=== PATIENT | female | born 1945 | race Caucasian/White ===

== ENCOUNTER 2020-05-08 08:45 | Outpatient (CLI) | payer MEDICARE, SELFPAY ==
--- NOTE | ~2020-05-08 | US_ITS ---
EXAMINATION: US retroperitoneal comp EXAM DATE: 05/08/2020 09:24 INDICATION: Hematuria. TECHNIQUE: Multiple grayscale and Doppler images of the kidneys were obtained (by a technologist who performed the scan) and subsequently reviewed. There is no prior study for comparison. FINDINGS: Right kidney: There is normal contour and echogenicity. It measures 10.0 x 4.2 x 5.4 centimeters. T here are no focal renal lesions identified. There is no hydronephrosis. Left kidney: There is normal contour and echogenicity. It measures 10.3 x 5.0 x 6.2 centimeters. Th ere are no focal renal lesions identified. There is no hydronephrosis. Bladder unremarkable. IMPRESSION: 1. Sonographically unremarkable kidneys. Reviewed, dictated and finalized at location A.
== END 2020-05-08 08:46 | disposition home or self-care (01) ==
LOC: CHSIMG 08:47
PROVIDERS: PCP Internal Medicine; Visit Provider Internal Medicine
DX: R31.9 Hematuria, unspecified (principal)
CPT/HCPCS: 76770; 88112

== ENCOUNTER 2020-09-04 07:29 | Outpatient (CLI) | payer MEDICARE, SELFPAY ==
--- NOTE | ~2020-09-04 | MM_ITS ---
EXAMINATION: MM screening vasiliy BI w yanet HISTORY: Screening TECHNIQUE: Craniocaudal and mediolateral oblique 3-D tomosynthesis images were obtained and synthetic 2-D images were generated. CAD analysis was submitted and interpreted. COMPARISON: Comparison to multiple prior studies sequentially, with oldest reviewed study dated 02/2011. BREAST PARENCHYMAL COMPOSITION: The breasts are extremely dense, which lowers the sensitivity of mamm ography. FINDINGS: There is no evidence of suspicious mass, calcification, or architectural distortion to sugg est malignancy in either breast. There has been no suspicious interval change. IMPRESSION: 1. No mammographic evidence of malignancy. 2. Recommend routine screening mammography in one year. BI-RADS Category 1: Negative Reviewed, dictated and finalized at location A. 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
--- NOTE | ~2020-09-04 | US_ITS ---
EXAMINATION: US right upper quadrant DATE: 09/04/2020 08:24 INDICATION: Elevated liver enzymes TECHNIQUE: Multiple grayscale and Doppler ultrasound images of the abdomen were obtained. COMPARISON: 09/03/2019 FINDINGS: The pancreatic head and body are normal in appearance. The pancreatic tail is not visualized. Liver has normal echogenicity and contour, with a smooth surface. No liver lesion identified. No intrahepat ic biliary duct dilation suspected. Portal venous flow was seen in the hepatopetal, normal direction and has normal Doppler waveform. The gallbladder is normal in appearance. There is no cholelithiasis . The common bile duct measures 5 mm, which is normal. Sonographic Rodas sign was reported as negati ve by the administration physician.Visualized portion of the right kidney demonstrates normal echogenicity and con tour with no hydronephrosis. IMPRESSION: 1. Normal right upper quadrant ultrasound. Reviewed, dictated and finalized at location B. 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
[2020-09-04 08:21] LABS: Alanine Aminotransferase 29 U/L (14-59); Alkaline Phosphatase 52 U/L (46-116); Anion Gap 8 mmol/L (8-16); Aspartate Amino Transferase 27 U/L (15-37); Bilirubin,Total 0.6 mg/dL (0.00-1.00); Blood Urea Nitrogen 10 mg/dL (7-18); Calcium 9.5 mg/dL (8.5-10.1); Carbon Dioxide 33 mmol/L (21-32); Chloride 102 mmol/L (98-108); Estimated Glomerular Filt Rate 55; Glucose 88 mg/dL (70-99); Osmolality Calculated 294 mOsm/kg (285-295); Sodium 143 mmol/L (136-145); Total Protein 7.4 g/dL (6.4-8.2)
== END 2020-09-04 07:30 | disposition home or self-care (01) ==
LOC: CHSLAB 07:30
PROVIDERS: PCP Internal Medicine; Visit Provider Internal Medicine
DX: Z12.31 Encounter for screening mammogram for malignant neoplasm of breast (principal); R94.5 Abnormal results of liver function studies
CPT/HCPCS: 36415; 76705; 77063; 77067; 80053

== ENCOUNTER 2020-12-11 07:13 | Outpatient (CLI) | payer MEDICARE, SELFPAY ==
[2020-12-11 07:29] LABS: Appearance Urine Sl Cloudy (Clear); Basophils Absolute Auto 0.07 K/mm3 (0.00-0.10); Basophils Percent Auto 1.1 % (0.0-1.0); Bilirubin Urine Negative (Negative); Color Urine Yellow (Yellow); Eosinophils Absolute Auto 0.58 K/mm3 (0.02-0.50); Eosinophils Percent Auto 9.3 % (1.0-6.0); Glucose Urine UA Negative (Negative); Hematocrit 42.9 % (35.0-42.0); Immature Granulocyte Absolute 0.01 K/mm3 (0.00-0.00); Immature Granulocyte Percent A 0.2 % (0.0-0.0); Ketones Urine Trace (Negative); Leukocyte Esterase Ur Trace LEU/UL (Negative); Lymphocytes Absolute Auto 2.43 K/mm3 (1.10-4.50); Lymphocytes Percent Auto 38.8 % (18.0-42.0); Mean Corpuscular HGB Conc 32.6 g/dL (32.0-36.0); Mean Corpuscular Hemoglobin 31.9 pg (27.0-31.0); Mean Corpuscular Volume 97.7 fL (78.0-102.0); Mean Platelet Volume 10.2 fl (9.2-11.8); Monocytes Absolute Auto 0.52 K/mm3 (0.10-0.90); Monocytes Percent Auto 8.3 % (2.0-11.0); Neutrophils Absolute Auto 2.7 K/mm3 (1.7-7.2); Neutrophils Percent Auto 42.3 % (50.0-70.0); Nitrate Urine Negative (Negative); Platelet Count Result 228 K/mm3 (150-420); Protein Urine Trace (Negative); Red Blood Count 4.39 M/mm3 (4.20-5.40); Urobilinogen Urine 0.2 mg/dL (0.2-1.0); White Blood Count 6.3 K/mm3 (4.8-10.8); pH Urine 7.5 (5.0-8.0)
[2020-12-11 07:37] LABS: Add Urine Microscopic? YES; Blood Urine Trace-Intact (Negative)
[2020-12-11 07:38] LABS: Amorphous Sediment Urine Moderate; Bacteria Urine 1+ /hpf; RBC Urine 0-2 /hpf (0-2); Squamous Epithelial Cell Urine Few /hpf (Few); WBC Urine 0-3 /hpf (0-3)
[2020-12-11 08:20] LABS: Alanine Aminotransferase 39 U/L (14-59); Albumin Level 3.7 g/dL (3.4-5.0); Alkaline Phosphatase 64 U/L (46-116); Anion Gap 8 mmol/L (8-16); Aspartate Amino Transferase 31 U/L (15-37); Bilirubin,Total 0.6 mg/dL (0.00-1.00); Blood Urea Nitrogen 12 mg/dL (7-18); Calcium 8.9 mg/dL (8.5-10.1); Carbon Dioxide 31 mmol/L (21-32); Chloride 104 mmol/L (98-108); Cholesterol 260 mg/dL (0-200); Estimated Glomerular Filt Rate 59; Glucose 98 mg/dL (70-99); HDL Direct 116 mg/dL (40-60); LDL Cholesterol Calculated 132 mg/dL (<130); Osmolality Calculated 295 mOsm/kg (285-295); Potassium 4.2 mmol/L (3.5-5.1); Sodium 143 mmol/L (136-145); Total Protein 7.4 g/dL (6.4-8.2); Triglycerides 58 mg/dL (0-150); Vitamin B12 992 pg/mL (193-986)
[2020-12-15 03:03] LABS: Vitamin D 25 Hydroxy 58 ng/mL (30-100)
== END 2020-12-11 07:14 | disposition home or self-care (01) ==
LOC: CHSLAB 07:15
PROVIDERS: PCP Internal Medicine; Visit Provider Internal Medicine
DX: I10 Essential (primary) hypertension (principal); D51.9 Vitamin B12 deficiency anemia, unspecified; M81.0 Age-related osteoporosis without current pathological fracture
CPT/HCPCS: 36415; 80053; 80061; 81001; 82306; 82607; 85025

== ENCOUNTER 2021-06-12 06:58 | Outpatient (CLI) | payer MEDICARE, SELFPAY ==
[2021-06-12 07:16] LABS: Add Urine Microscopic? YES; Appearance Urine Clear (Clear); Bilirubin Urine Negative (Negative); Blood Urine 1+ (Negative); Color Urine Light Yellow (Yellow); Glucose Urine UA Negative (Negative); Ketones Urine Negative (Negative); Leukocyte Esterase Ur Negative (Negative); Nitrate Urine Negative (Negative); Protein Urine Negative (Negative); Urobilinogen Urine 0.2 mg/dL (0.2-1.0); pH Urine 7.5 (5.0-8.0)
[2021-06-12 07:37] LABS: Bacteria Urine Trace /hpf; Squamous Epithelial Cell Urine Rare /hpf (Few); WBC Urine None seen /hpf (0-3)
[2021-06-12 08:00] LABS: Hematocrit 45.1 % (35.0-42.0); Hemoglobin 15.2 g/dL (11.7-13.8); Mean Corpuscular HGB Conc 33.7 g/dL (32.0-36.0); Mean Corpuscular Hemoglobin 32.6 pg (27.0-31.0); Mean Corpuscular Volume 96.8 fL (78.0-102.0); Mean Platelet Volume 10.8 fl (9.2-11.8); Platelet Count Result 264 K/mm3 (150-420); Red Blood Count 4.66 M/mm3 (4.20-5.40); White Blood Count 7.7 K/mm3 (4.8-10.8)
[2021-06-12 08:02] LABS: Band Neutrophils Percent 0 % (0-6); Eosinophils Absolute Manual 0.69 K/mm3 (0.02-0.5); Eosinophils Percent Manual 9 % (1-6); Lymphocytes Percent Manual 39 % (18-44); Monocytes Absolute Manual 0.69 K/mm3 (0.1-0.90); Monocytes Percent Manual 9 % (3-9); Neutrophils Absolute Manual 3.31 K/mm3 (1.7-7.2); Neutrophils Percent Manual 43 % (46-73); Platelet Estimate Adequate (Adequate); Total Cells Counted 100
[2021-06-12 08:03] LABS: Alanine Aminotransferase 49 U/L (14-59); Albumin Level 3.6 g/dL (3.4-5.0); Alkaline Phosphatase 61 U/L (46-116); Anion Gap 8 mmol/L (8-16); Aspartate Amino Transferase 42 U/L (15-37); Bilirubin,Total 0.5 mg/dL (0.00-1.00); Blood Urea Nitrogen 9 mg/dL (7-18); Calcium 9.3 mg/dL (8.5-10.1); Carbon Dioxide 32 mmol/L (21-32); Chloride 104 mmol/L (98-108); Estimated Glomerular Filt Rate > 60; Glucose 88 mg/dL (70-99); Osmolality Calculated 295 mOsm/kg (285-295); Potassium 4.2 mmol/L (3.5-5.1); Sodium 144 mmol/L (136-145); Total Protein 7.4 g/dL (6.4-8.2)
[2021-06-16 19:35] LABS: Vitamin D 25 Hydroxy 69 ng/mL (30-100)
== END 2021-06-12 06:59 | disposition home or self-care (01) ==
LOC: CHSLAB 07:01
PROVIDERS: PCP Internal Medicine; Visit Provider Internal Medicine
DX: E53.8 Deficiency of other specified B group vitamins (principal); I10 Essential (primary) hypertension; R31.21 Asymptomatic microscopic hematuria; M81.0 Age-related osteoporosis without current pathological fracture
CPT/HCPCS: 36415; 80053; 81001; 82306; 85025

== ENCOUNTER 2021-09-17 07:17 | Outpatient (CLI) | payer MEDICARE, SELFPAY ==
--- NOTE | ~2021-09-17 | MM_ITS ---
EXAMINATION: MM screening vasiliy BI w yanet HISTORY: Screening mammogram TECHNIQUE: Craniocaudal and mediolateral oblique 3-D tomosynthesis images were obtained and synthetic 2-D images were generated. CAD analysis was submitted and interpreted. COMPARISON: 09/04/2020, 09/03/2019 BREAST PARENCHYMAL COMPOSITION: The breasts are heterogeneously dense, which may obscure small masses . FINDINGS: Scattered benign-appearing calcifications are present. There is no evidence of suspicious m ass, calcification, or architectural distortion to suggest malignancy in either breast. There has bee n no suspicious interval change. IMPRESSION: 1. No mammographic evidence of malignancy. 2. Recommend routine screening mammography in one year. BI-RADS Category 2: Benign finding(s). Reviewed, dictated and finalized at location A. CARE SPECIALIST
--- NOTE | ~2021-09-17 | DEXA_ITS ---
Bone Density Report Name: MARIA G HELLER Age: 76 Sex: Female Ethnicity: White Date of : 1945 Indication: osteopenia; monitoring treatment; height loss; hysterectomy; Referring Provider: Yann Green Study: Bone densitometry was performed. Exam Date: September 17, 2021 Accession number: [id number] Bone Density: Region BMD T-score Z-score Classification AP Spine(L1-L4) 0.894 -1.4 1.0 Osteopenia Femoral Neck (Left) 0.734 -1.0 1.0 Normal Total Hip (Left) 0.736 -1.7 0.1 Osteopenia Femoral Neck (Right) 0.690 -1.4 0.7 Osteopenia Total Hip (Right) 0.717 -1.8 -0.1 Osteopenia Femoral Neck Mean 0.712 -1.2 0.9 Osteopenia Total Hip Mean 0.726 -1.8 0.0 Osteopenia World Health Organization criteria for BMD impression classify patients as: Normal (T-score at or above -1.0), Osteopenia (T-score between -1.0 and -2.5), or Osteoporosis (T-score at or below -2.5). 10-year Fracture Risk: FRAX not reported because: Treated for osteoporosis Previous Exams: Region Exam Age BMD T-score BMD Change BMD Change Date g/cm2 vs Baseline vs Previous AP Spine (L1-L4) 09/17/2021 76 0.894 -1.4 0.072 (8.8%)# -0.028 (-3.0%) 09/03/2019 74 0.922 -1.1 0.100 (12.2%)* 0.067 (7.9%)* 07/23/2015 69 0.854 -1.8 0.033 (4.0%)* -0.028 (-3.2%) 10/20/2012 67 0.882 -1.5 0.061 (7.4%)* 0.017 (2.0%) 10/12/2010 65 0.866 -1.6 0.044 (5.3%)* 0.044 (5.3%)* 09/16/2008 63 0.822 -2.0 Total Hip(Left) 09/17/2021 76 0.736 -1.7 0.113 (18.2%)# 0.029 (4.1%)# 09/03/2019 74 0.707 -1.9 0.085 (13.6%)* 0.099 (16.3%)* 07/23/2015 69 0.608 -2.7 -0.014 (-2.2%) -0.002 (-0.4%) 10/20/2012 67 0.611 -2.7 -0.012 (-1.9%) -0.039 (-6.0%) 10/12/2010 65 0.650 -2.4 0.028 (4.4%)* 0.028 (4.4%)* 09/16/2008 63 0.622 -2.6 Total Hip(Right) 09/17/2021 76 0.717 -1.8 0.075 (11.7%)# 0.058 (8.8%)# 09/03/2019 74 0.659 -2.3 0.017 (2.7%) 0.022 (3.4%) 10/20/2012 67 0.637 -2.5 -0.004 (-0.6%) -0.025 (-3.7%) 10/12/2010 65 0.662 -2.3 0.021 (3.2%) 0.021 (3.2%) 09/16/2008 63 0.641 -2.5 *Denotes significance at 95% confidence level, LSC for AP Spine = 0.022 g/cm2, LSC for Total Hip = 0.027 g/cm2 # Denotes dissimilar scan types or analysis methods Clinical Information Provided by Patient: Is being treated for osteoporosis Has used the following medications: Fosamax (i.e. alendronate), Vitamin D Has the following medical conditions: Hysterectomy
[2021-09-17 08:10] LABS: Alanine Aminotransferase 61 U/L (14-59); Alkaline Phosphatase 56 U/L (46-116); Anion Gap 13 mmol/L (8-16); Aspartate Amino Transferase 53 U/L (15-37); Bilirubin,Total 0.6 mg/dL (0.00-1.00); Blood Urea Nitrogen 8 mg/dL (7-18); Calcium 9.5 mg/dL (8.5-10.1); Carbon Dioxide 30 mmol/L (21-32); Chloride 101 mmol/L (98-108); Estimated Glomerular Filt Rate 51; Glucose 98 mg/dL (70-99); Osmolality Calculated 296 mOsm/kg (285-295); Sodium 144 mmol/L (136-145); Total Protein 7.9 g/dL (6.4-8.2)
== END 2021-09-17 07:18 | disposition home or self-care (01) ==
LOC: CHSIMG 07:20
PROVIDERS: PCP Internal Medicine; Visit Provider Internal Medicine
DX: Z12.31 Encounter for screening mammogram for malignant neoplasm of breast (principal); M81.0 Age-related osteoporosis without current pathological fracture
CPT/HCPCS: 36415; 77063; 77067; 77080; 80053

== ENCOUNTER 2021-12-25 07:29 | Outpatient (CLI) | payer MEDICARE, SELFPAY ==
[2021-12-25 07:44] LABS: Appearance Urine Clear (Clear); Basophils Percent Auto 1.3 % (0.0-1.0); Bilirubin Urine Negative (Negative); Color Urine Yellow (Yellow); Eosinophils Percent Auto 9.2 % (1.0-6.0); Glucose Urine UA Negative (Negative); Hemoglobin 15.1 g/dL (11.7-13.8); Immature Granulocyte Absolute 0.02 K/mm3 (0.00-0.00); Immature Granulocyte Percent A 0.3 % (0.0-0.0); Ketones Urine Negative (Negative); Leukocyte Esterase Ur Negative (Negative); Lymphocytes Percent Auto 31.7 % (18.0-42.0); Mean Corpuscular HGB Conc 32.8 g/dL (32.0-36.0); Mean Corpuscular Hemoglobin 32.1 pg (27.0-31.0); Mean Corpuscular Volume 97.9 fL (78.0-102.0); Mean Platelet Volume 10.3 fl (9.2-11.8); Monocytes Absolute Auto 0.56 K/mm3 (0.10-0.90); Monocytes Percent Auto 7.4 % (2.0-11.0); Neutrophils Absolute Auto 3.8 K/mm3 (1.7-7.2); Neutrophils Percent Auto 50.1 % (50.0-70.0); Nitrate Urine Negative (Negative); Platelet Count Result 261 K/mm3 (150-420); Protein Urine Trace (Negative); Urobilinogen Urine 0.2 mg/dL (0.2-1.0); White Blood Count 7.6 K/mm3 (4.8-10.8)
[2021-12-25 07:50] LABS: Add Urine Microscopic? YES; Bacteria Urine Trace /hpf; Blood Urine Trace-Intact (Negative); RBC Urine None seen /hpf (0-2); Squamous Epithelial Cell Urine Rare /hpf (Few); WBC Urine None seen /hpf (0-3)
[2021-12-25 07:51] LABS: Mucus Urine Moderate /lpf
[2021-12-25 18:26] LABS: Alanine Aminotransferase 44 U/L (14-59); Albumin Level 3.9 g/dL (3.4-5.0); Alkaline Phosphatase 50 U/L (46-116); Anion Gap 7 mmol/L (8-16); Aspartate Amino Transferase 43 U/L (15-37); Bilirubin,Total 0.4 mg/dL (0.00-1.00); Blood Urea Nitrogen 10 mg/dL (7-18); Calcium 9.3 mg/dL (8.5-10.1); Carbon Dioxide 30 mmol/L (21-32); Chloride 105 mmol/L (98-108); Cholesterol 267 mg/dL (0-200); Creatine Kinase 66 U/L (26-192); Estimated Glomerular Filt Rate > 60; Free T3 3.17 pg/mL (2.18-3.98); Free T4 Free Thyroxine 0.98 ng/dL (0.76-1.46); Glucose 86 mg/dL (70-99); HDL Direct 99 mg/dL (40-60); LDL Cholesterol Calculated 151 mg/dL (<130); Osmolality Calculated 292 mOsm/kg (285-295); Potassium 4.1 mmol/L (3.5-5.1); Sodium 142 mmol/L (136-145); Thyroid Stimulating Hormone 0.88 uIU/mL (0.36-3.74); Total Protein 8.2 g/dL (6.4-8.2); Triglycerides 87 mg/dL (0-150); Vitamin B12 842 pg/mL (193-986)
[2021-12-29 20:08] LABS: Vitamin D 25 Hydroxy 69 ng/mL (30-100)
== END 2021-12-25 07:30 | disposition home or self-care (01) ==
LOC: CHSLAB 07:32
PROVIDERS: PCP Internal Medicine; Visit Provider Internal Medicine
DX: M81.0 Age-related osteoporosis without current pathological fracture (principal); I10 Essential (primary) hypertension; E53.8 Deficiency of other specified B group vitamins; R31.21 Asymptomatic microscopic hematuria; I49.3 Ventricular premature depolarization
CPT/HCPCS: 36415; 80053; 80061; 81001; 82306; 82550; 82607; 84439; 84443; 84481; 85025

== ENCOUNTER 2022-07-12 09:15 | Outpatient (CLI) | payer MEDICARE, SELFPAY ==
[2022-07-12 09:29] LABS: Basophils Absolute Auto 0.07 K/mm3 (0.00-0.10); Basophils Percent Auto 0.9 % (0.0-1.0); Eosinophils Absolute Auto 0.46 K/mm3 (0.02-0.50); Eosinophils Percent Auto 6.1 % (1.0-6.0); Hematocrit 43.1 % (35.0-42.0); Hemoglobin 14.4 g/dL (11.7-13.8); Immature Granulocyte Absolute 0.03 K/mm3 (0.00-0.00); Immature Granulocyte Percent A 0.4 % (0.0-0.0); Lymphocytes Absolute Auto 2.57 K/mm3 (1.10-4.50); Lymphocytes Percent Auto 34.2 % (18.0-42.0); Mean Corpuscular HGB Conc 33.4 g/dL (32.0-36.0); Mean Corpuscular Volume 98.9 fL (78.0-102.0); Mean Platelet Volume 10.1 fl (9.2-11.8); Monocytes Absolute Auto 0.62 K/mm3 (0.10-0.90); Monocytes Percent Auto 8.3 % (2.0-11.0); Neutrophils Absolute Auto 3.8 K/mm3 (1.7-7.2); Neutrophils Percent Auto 50.1 % (50.0-70.0); Platelet Count Result 226 K/mm3 (150-420); Red Blood Count 4.36 M/mm3 (4.20-5.40); Red Cell Distribution Width 13.3 % (11.6-14.4); White Blood Count 7.5 K/mm3 (4.8-10.8)
[2022-07-12 09:30] LABS: Appearance Urine Slightly Cloudy (Clear); Bilirubin Urine 1+ (Negative); Color Urine Yellow (Yellow); Glucose Urine UA Negative (Negative); Ketones Urine Trace (Negative); Leukocyte Esterase Ur Negative (Negative); Nitrate Urine Negative (Negative); Protein Urine Negative (Negative); Specific Grav Ur 1.015 (1.010-1.020); Urobilinogen Urine 0.2 mg/dL (0.2-1.0)
[2022-07-12 09:37] LABS: Add Urine Microscopic? YES; Bacteria Urine Trace /hpf; Blood Urine Trace-Intact (Negative); RBC Urine 0-2 /hpf (0-2); Squamous Epithelial Cell Urine Few /hpf (Few); WBC Urine None seen /hpf (0-3)
[2022-07-12 09:38] LABS: Amorphous Sediment Urine Moderate
[2022-07-12 10:44] LABS: Alanine Aminotransferase 111 U/L (14-59); Alkaline Phosphatase 66 U/L (46-116); Anion Gap 9 mmol/L (8-16); Aspartate Amino Transferase 104 U/L (15-37); Bilirubin,Total 0.5 mg/dL (0.00-1.00); Blood Urea Nitrogen 10 mg/dL (7-18); Calcium 9.1 mg/dL (8.5-10.1); Carbon Dioxide 32 mmol/L (21-32); Chloride 106 mmol/L (98-108); Cholesterol 318 mg/dL (0-200); Creatine Kinase 56 U/L (26-192); Estimated Glomerular Filt Rate > 60; Glucose 88 mg/dL (70-99); HDL Direct 123 mg/dL (40-60); LDL Cholesterol Calculated 183 mg/dL (<130); Magnesium 2.1 mg/dL (1.8-2.4); Osmolality Calculated 302 mOsm/kg (285-295); Potassium 4.4 mmol/L (3.5-5.1); Sodium 147 mmol/L (136-145); Total Protein 7.8 g/dL (6.4-8.2); Triglycerides 62 mg/dL (0-150); Vitamin B12 794 pg/mL (193-986)
[2022-07-12 11:00] LABS: Free T4 Free Thyroxine 0.87 ng/dL (0.76-1.46)
[2022-07-17 13:33] LABS: Vitamin D 25 Hydroxy 88 ng/mL (30-100)
== END 2022-07-12 09:16 | disposition home or self-care (01) ==
LOC: CHSLAB 09:19
PROVIDERS: PCP Internal Medicine; Visit Provider Internal Medicine
DX: E53.8 Deficiency of other specified B group vitamins (principal); I10 Essential (primary) hypertension; R74.8 Abnormal levels of other serum enzymes; I49.3 Ventricular premature depolarization; M81.0 Age-related osteoporosis without current pathological fracture
CPT/HCPCS: 36415; 80053; 80061; 81001; 82306; 82550; 82607; 83735; 84439; 84443; 85025

== ENCOUNTER 2022-08-10 07:48 | Outpatient (CLI) | payer MEDICARE, SELFPAY ==
[2022-08-10 08:27] LABS: Sodium 142 mmol/L (136-145)
[2022-08-10 08:28] LABS: Alanine Aminotransferase 37 U/L (14-59); Albumin Level 3.7 g/dL (3.4-5.0); Alkaline Phosphatase 49 U/L (46-116); Anion Gap 5 mmol/L (8-16); Aspartate Amino Transferase 32 U/L (15-37); Bilirubin,Total 0.4 mg/dL (0.00-1.00); Blood Urea Nitrogen 11 mg/dL (7-18); Calcium 9.1 mg/dL (8.5-10.1); Carbon Dioxide 32 mmol/L (21-32); Chloride 105 mmol/L (98-108); Estimated Glomerular Filt Rate 57; Glucose 93 mg/dL (70-99); Osmolality Calculated 293 mOsm/kg (285-295); Potassium 4.1 mmol/L (3.5-5.1); Total Protein 7.2 g/dL (6.4-8.2)
== END 2022-08-10 07:49 | disposition home or self-care (01) ==
LOC: CHSLAB 07:51
PROVIDERS: PCP Internal Medicine; Visit Provider Internal Medicine
DX: R74.8 Abnormal levels of other serum enzymes (principal)
CPT/HCPCS: 36415; 80053

== ENCOUNTER 2022-09-08 00:47 | Day surgery (SDC) | payer MEDICARE, SELFPAY ==
[2022-09-02 09:41] VITALS: BMI 20.8
--- NOTE | 2022-09-02 09:50 | PC.NURSE ---
Report to the Outpatient Waiting Room, entrance under the green pavilion located off [facility], at time ___0900____ on date ___09/08/22____. Planned Procedure Time: ___1000 . Time changes happen often and if your time is changed the preop area will call you the afternoon before. - You and your visitor will be asked to self-screen and do not enter if you have any COVID symptoms. - Only one visitor is requested with a max of two and NO children visitors are allowed at this time. - The patient visitor may be requested to leave or wait in car when not with patient due to distancing restrictions. - A mask is optional within the hospital at this time. -MAY HAVE LIGHT BREAKFAST Take the following medications with a SIP of water the morning of surgery: REGULAR HOME MEDS DO NOT STOP ANY OF YOUR OTHER PRESCRIPTION MEDICATIONS PRIOR TO SURGERY ?EXCEPT THE FOLLOWING Medications to discontinue per physician N/A Date to take last dose Please no make-up, nail citizen of [place], hairspray, perfume, deodorant, or body powder the day of surgery. No jewelry (including any body piercings) or valuables the day of surgery, leave them at home. Please take a shower or bath the night before, or the morning of, surgery with an antibacterial soap. Wear comfortable, loose fitting clothing. Children are encouraged to wear pajamas. - Jewelry must be removed prior to entering the operating room. Rings and piercings that are not removed may be cut off. - The hospital will not accept responsibility for valuables. - Please leave all valuables, including medications, at home the day of surgery. -MAY DRIVE YOURSELF TO/FROM HOSPITAL-BUT HAVING SOMEONE WITH YOU IS ENCOURAGED - NO public transportation without another adult if you receive anesthesia. - We recommend that an adult stay with you for 24 hours following discharge. - We also recommend that you do not drive, make important decision, drink alcoholic beverages, or take any drugs that were not prescribed by your health care provider for at least 24 hours after your discharge time. For Pediatric surgeries, we recommend two adults accompany the child home. Follow any additional instructions given to you from your surgeon. If you or anyone in your household have experienced Covid symptoms in the past week, please notify your surgeon or the nurse liaison at the phone number below for possible testing. Telephone instructions given to ____PT and asked if any additional questions and then verbalized understanding. Patient advised to call surgeon office or pre surgery nurse liaison [phone] if any additional questions.
[2022-09-08] VITALS (7 sets, daily range): BP systolic 136–166; BP diastolic 63–84; PULSE 99–118; RESP 16–20; TEMP 37; O2SAT 96–100
--- NOTE | 2022-09-08 07:06 | WPDHPUPDATE1 ---
History and Physical Update Update Date/Time: 09/08/22 07:06 History and Physical has been reviewed, including an updated exam of the patient. There are NO changes in the patient's condition. Risks, benefits, and alternatives have been discussed and questions answered. Patient agrees to proceed with procedure.
--- NOTE | 2022-09-08 07:07 | WPDHPUPDATE1 ---
History and Physical Update Update Date/Time: 09/08/22 07:07 History and Physical has been reviewed, including an updated exam of the patient. There are NO changes in the patient's condition. Risks, benefits, and alternatives have been discussed and questions answered. Patient agrees to proceed with procedure.
[2022-09-08] MEDS: LIDO 1%/EPINEPHRINE 1:100,000 20 ML VIAL 8 ML INFILTRATE (09:28)
--- NOTE | 2022-09-08 18:11 | P.OP_ITS ---
Procedure Note - Detailed Date of Procedure 09/08/22 Pre-op Diagnosis BCCA left neck Post-op Diagnosis Same Procedure Performed 3 cm excision of basal cell carcinoma for positive margins from the left neck with intermediate repair 5 cm Surgeon Andrew Rayo MD Anesthesia Local Findings no residual basal cell carcinoma was identified by the pathologist on frozen section. Description of Procedure The surgical site on the left neck of the patient was marked. This was a healed wound were basal cell carcinoma had been removed in other office. Both peripheral and deep margins were said to be positive. Given the option the patient preferred to come to the hospital for frozen section control of a re- excision. the patient was taken to the operating room where she was placed supine on the operating table. A time-out was held and confirmed. The left ne ck was prepped and draped in the usual fashion. The site was carefully marked with a pen for a 5 mm margin re-excision all the way around. This area was infiltrated with 2% lidocaine with epinephrine. The excision was carried out through full-thickness of skin and subcutaneous tissue. The most lateral margin was marked for 12:00 p.m. with a suture. The specimen was sent to pathology. The pathologist reported is finding of no residual basal cell carcinoma on his slides. The wound margins were undermined a cm in all directions all the way around. The wound was approximated with multiple intradermal sutures of 4-0 Vicryl. The final skin closure was done with glue. The patient tolerated the procedure well. She is discharged home with instructions in wound care and follow-up. A prescription for tramadol 50 mg 8. Was sent to her pharmacy Estimated Blood Loss 3 Drains No Packing No Pathology Yes Complications No immediate complications Condition Stable Disposition Same day
== END 2022-09-08 10:58 | disposition home or self-care (01) ==
PROVIDERS: PCP Internal Medicine; Visit Provider Plastic Surgery
PROC: (CPT 11623; principal; 2022-09-08 10:00)
DX: C44.41 Basal cell carcinoma of skin of scalp and neck (principal)
CPT/HCPCS: 11623; 12042; 88305; 88331; A9270

== ENCOUNTER 2023-04-04 09:04 | Outpatient (CLI) | payer MEDICARE, OTHER, SELFPAY ==
[2023-04-04 09:21] LABS: Basophils Absolute Auto 0.09 K/mm3 (0.00-0.10); Basophils Percent Auto 1.4 % (0.0-1.0); Eosinophils Absolute Auto 0.56 K/mm3 (0.02-0.50); Eosinophils Percent Auto 8.5 % (1.0-6.0); Hematocrit 44.7 % (35.0-42.0); Immature Granulocyte Absolute 0.01 K/mm3 (0.00-0.00); Immature Granulocyte Percent A 0.2 % (0.0-0.0); Lymphocytes Absolute Auto 2.12 K/mm3 (1.10-4.50); Lymphocytes Percent Auto 32.1 % (18.0-42.0); Mean Corpuscular HGB Conc 33.6 g/dL (32.0-36.0); Mean Corpuscular Hemoglobin 32.1 pg (27.0-31.0); Mean Corpuscular Volume 95.7 fL (78.0-102.0); Mean Platelet Volume 10.2 fl (9.2-11.8); Monocytes Absolute Auto 0.57 K/mm3 (0.10-0.90); Monocytes Percent Auto 8.6 % (2.0-11.0); Neutrophils Absolute Auto 3.3 K/mm3 (1.7-7.2); Neutrophils Percent Auto 49.2 % (50.0-70.0); Platelet Count Result 249 K/mm3 (150-420); Red Blood Count 4.67 M/mm3 (4.20-5.40); Red Cell Distribution Width 12.9 % (11.6-14.4); White Blood Count 6.6 K/mm3 (4.8-10.8)
[2023-04-04 09:25] LABS: Appearance Urine Clear (Clear); Bilirubin Urine Negative (Negative); Blood Urine Trace-Intact (Negative); Color Urine Yellow (Yellow); Glucose Urine UA Negative (Negative); Ketones Urine Negative (Negative); Leukocyte Esterase Ur Negative LEU/UL (Negative); Nitrate Urine Negative (Negative); Protein Urine Trace (Negative); Urobilinogen Urine 0.2 mg/dL (0.2-1.0); pH Urine 6.5 (5.0-8.0)
[2023-04-04 09:30] LABS: Add Urine Microscopic? YES; Bacteria Urine Trace /hpf; Mucus Urine Few /lpf; RBC Urine 0-2 /hpf (0-2); Squamous Epithelial Cell Urine Few /hpf (Few); WBC Urine None seen /hpf (0-3)
[2023-04-04 10:49] LABS: Alanine Aminotransferase 44 U/L (14-59); Albumin Level 3.8 g/dL (3.4-5.0); Alkaline Phosphatase 53 U/L (46-116); Anion Gap 11 mmol/L (8-16); Aspartate Amino Transferase 50 U/L (15-37); Bilirubin,Total 0.6 mg/dL (0.00-1.00); Blood Urea Nitrogen 10 mg/dL (7-18); Calcium 9.1 mg/dL (8.5-10.1); Carbon Dioxide 29 mmol/L (21-32); Chloride 105 mmol/L (98-108); Cholesterol 283 mg/dL (0-200); Creatine Kinase 64 U/L (26-192); Estimated Glomerular Filt Rate > 60; Free T3 3.47 pg/mL (2.18-3.98); Free T4 Free Thyroxine 0.97 ng/dL (0.76-1.46); Glucose 95 mg/dL (70-99); HDL Direct 110 mg/dL (40-60); LDL Cholesterol Calculated 156 mg/dL (<130); Magnesium 2.2 mg/dL (1.8-2.4); Osmolality Calculated 299 mOsm/kg (285-295); Potassium 4.1 mmol/L (3.5-5.1); Sodium 145 mmol/L (136-145); Thyroid Stimulating Hormone 1.36 uIU/mL (0.36-3.74); Total Protein 7.2 g/dL (6.4-8.2); Triglycerides 83 mg/dL (0-150); Vitamin B12 726 pg/mL (193-986)
[2023-04-07 20:59] LABS: Vitamin D 25 Hydroxy 104 ng/mL (30-100)
== END 2023-04-04 09:05 | disposition home or self-care (01) ==
LOC: CHSLAB 09:10
PROVIDERS: PCP Internal Medicine; Visit Provider Internal Medicine
DX: N39.0 Urinary tract infection, site not specified (principal); I10 Essential (primary) hypertension; M81.0 Age-related osteoporosis without current pathological fracture; E53.8 Deficiency of other specified B group vitamins; R74.8 Abnormal levels of other serum enzymes
CPT/HCPCS: 36415; 80053; 80061; 81001; 82306; 82550; 82607; 83735; 84439; 84443; 84481; 85025

== ENCOUNTER 2023-07-13 08:18 | Outpatient (CLI) | payer MEDICARE, SELFPAY ==
[2023-07-13 09:02] LABS: Alanine Aminotransferase 61 U/L (14-59); Albumin Level 3.8 g/dL (3.4-5.0); Alkaline Phosphatase 48 U/L (46-116); Anion Gap 2 mmol/L (8-16); Aspartate Amino Transferase 42 U/L (15-37); Bilirubin,Total 0.4 mg/dL (0.00-1.00); Blood Urea Nitrogen 11 mg/dL (7-18); Calcium 9.4 mg/dL (8.5-10.1); Carbon Dioxide 36 mmol/L (21-32); Chloride 103 mmol/L (98-108); Estimated Glomerular Filt Rate 59; Glucose 96 mg/dL (70-99); Osmolality Calculated 291 mOsm/kg (285-295); Potassium 4.1 mmol/L (3.5-5.1); Sodium 141 mmol/L (136-145); Total Protein 7.2 g/dL (6.4-8.2)
== END 2023-07-13 08:19 | disposition home or self-care (01) ==
LOC: CHSLAB 08:20
PROVIDERS: PCP Internal Medicine; Visit Provider Internal Medicine
DX: R74.8 Abnormal levels of other serum enzymes (principal)
CPT/HCPCS: 36415; 80053

== ENCOUNTER 2023-09-02 07:21 | Outpatient (CLI) | payer MEDICARE, SELFPAY ==
[2023-09-02 07:38] LABS: Basophils Absolute Auto 0.08 K/mm3 (0.00-0.10); Basophils Percent Auto 1.1 % (0.0-1.0); Eosinophils Absolute Auto 0.66 K/mm3 (0.02-0.50); Eosinophils Percent Auto 8.9 % (1.0-6.0); Hematocrit 42.5 % (35.0-42.0); Immature Granulocyte Absolute 0.03 K/mm3 (0.00-0.00); Immature Granulocyte Percent A 0.4 % (0.0-0.0); Lymphocytes Absolute Auto 2.62 K/mm3 (1.10-4.50); Lymphocytes Percent Auto 35.5 % (18.0-42.0); Mean Corpuscular HGB Conc 32.9 g/dL (32.0-36.0); Mean Corpuscular Hemoglobin 30.4 pg (27.0-31.0); Mean Corpuscular Volume 92.2 fL (78.0-102.0); Mean Platelet Volume 10.1 fl (9.2-11.8); Monocytes Absolute Auto 0.62 K/mm3 (0.10-0.90); Monocytes Percent Auto 8.4 % (2.0-11.0); Neutrophils Absolute Auto 3.4 K/mm3 (1.7-7.2); Neutrophils Percent Auto 45.7 % (50.0-70.0); Platelet Count Result 258 K/mm3 (150-420); Red Blood Count 4.61 M/mm3 (4.20-5.40); Red Cell Distribution Width 11.8 % (11.6-14.4); White Blood Count 7.4 K/mm3 (4.8-10.8)
[2023-09-02 08:15] LABS: Alanine Aminotransferase 22 U/L (14-59); Albumin Level 3.2 g/dL (3.4-5.0); Alkaline Phosphatase 50 U/L (46-116); Anion Gap 10 mmol/L (8-16); Aspartate Amino Transferase 17 U/L (15-37); Bilirubin,Total 0.6 mg/dL (0.00-1.00); Blood Urea Nitrogen 8 mg/dL (7-18); Calcium 8.8 mg/dL (8.5-10.1); Carbon Dioxide 31 mmol/L (21-32); Chloride 106 mmol/L (98-108); Estimated Glomerular Filt Rate > 60; GGT 29 U/L (5-55); Glucose 100 mg/dL (70-99); Osmolality Calculated 302 mOsm/kg (285-295); Sodium 147 mmol/L (136-145); Total Protein 6.9 g/dL (6.4-8.2)
== END 2023-09-02 07:22 | disposition home or self-care (01) ==
LOC: CHSLAB 07:23
PROVIDERS: PCP Internal Medicine; Visit Provider Internal Medicine
DX: R74.8 Abnormal levels of other serum enzymes (principal)
CPT/HCPCS: 36415; 80053; 82977; 85025

== ENCOUNTER 2023-11-02 10:53 | Outpatient (CLI) | payer MEDICARE, SELFPAY ==
[2023-11-02 11:07] LABS: Basophils Absolute Auto 0.07 K/mm3 (0.00-0.10); Basophils Percent Auto 0.7 % (0.0-1.0); Eosinophils Absolute Auto 0.58 K/mm3 (0.02-0.50); Eosinophils Percent Auto 6.1 % (1.0-6.0); Hematocrit 44.6 % (35.0-42.0); Hemoglobin 14.8 g/dL (11.7-13.8); Immature Granulocyte Absolute 0.03 K/mm3 (0.00-0.00); Immature Granulocyte Percent A 0.3 % (0.0-0.0); Lymphocytes Absolute Auto 3.31 K/mm3 (1.10-4.50); Lymphocytes Percent Auto 34.8 % (18.0-42.0); Mean Corpuscular HGB Conc 33.2 g/dL (32-36); Mean Corpuscular Volume 93.5 fL (78.0-102.0); Mean Platelet Volume 9.8 fl (9.2-11.8); Monocytes Percent Auto 7.4 % (2.0-11.0); Neutrophils Absolute Auto 4.82 K/mm3 (1.70-7.20); Neutrophils Percent Auto 50.7 % (50.0-70.0); Platelet Count Result 279 K/mm3 (150-420); Red Blood Count 4.77 M/mm3 (4.20-5.40); Red Cell Distribution Width 13.8 % (11.6-14.4); White Blood Count 9.5 K/mm3 (4.8-10.8)
[2023-11-02 11:13] LABS: Appearance Urine Clear (Clear); Bilirubin Urine Negative (Negative); Blood Urine Negative (Negative); Color Urine Yellow (Yellow); Glucose Urine UA Negative (Negative); Ketones Urine Trace (Negative); Leukocyte Esterase Ur Negative (Negative); Nitrate Urine Negative (Negative); Protein Urine Negative (Negative); Urobilinogen Urine 0.2 mg/dL (0.2-1.0)
[2023-11-02 11:18] LABS: Add Urine Microscopic? YES; Bacteria Urine Rare /hpf; RBC Urine None seen /hpf (0-2); Squamous Epithelial Cell Urine Rare /hpf (Few); WBC Urine None seen /hpf (0-3)
[2023-11-02 12:02] LABS: Alanine Aminotransferase 26 U/L (14-59); Albumin Level 3.9 g/dL (3.4-5.0); Alkaline Phosphatase 49 U/L (46-116); Anion Gap 13 mmol/L (4-12); Aspartate Amino Transferase 27 U/L (15-37); Bilirubin,Total 0.4 mg/dL (0.00-1.00); Blood Urea Nitrogen 9 mg/dL (7-18); Calcium 9.3 mg/dL (8.5-10.1); Carbon Dioxide 29 mmol/L (21-32); Chloride 102 mmol/L (98-108); Cholesterol 272 mg/dL (0-200); Estimated Glomerular Filt Rate > 60; Glucose 93 mg/dL (70-99); HDL Direct 110 mg/dL (40-60); LDL Cholesterol Calculated 148 mg/dL (<130); Osmolality Calculated 296 mOsm/kg (285-295); Potassium 3.6 mmol/L (3.5-5.1); Sodium 144 mmol/L (136-145); Total Protein 7.7 g/dL (6.4-8.2); Triglycerides 68 mg/dL (0-150); Vitamin B12 1426 pg/mL (193-986)
[2023-11-06 03:55] LABS: Vitamin D 25 Hydroxy 104 ng/mL (30-100)
== END 2023-11-02 10:54 | disposition home or self-care (01) ==
LOC: CHSLAB 10:56
PROVIDERS: PCP Internal Medicine; Visit Provider Internal Medicine
DX: E53.8 Deficiency of other specified B group vitamins (principal); I10 Essential (primary) hypertension; M81.0 Age-related osteoporosis without current pathological fracture; R74.8 Abnormal levels of other serum enzymes
CPT/HCPCS: 36415; 80053; 80061; 81001; 82306; 82607; 85025

== ENCOUNTER 2023-11-11 12:12 | Outpatient (CLI) | payer MEDICARE, OTHER, SELFPAY ==
--- NOTE | ~2023-11-11 | DEXA_ITS ---
? Bone Density Report? Name:? MARIA G HELLER Patient ID:??? [id number] Age:? 78 Sex:? Female Ethnicity:? White Date of : 1945 Indication: postmenopausal; screening for osteoporosis; height loss; hysterectomy; Referring Provider: FAROOQ WALKER Study: Bone densitometry was performed. Exam Date: November 11, 2023 Accession number: [id number] Bone Density: Region? BMD??? T-score? Z-score?? Classification AP Spine(L1-L4)? 0.902?? -1.3?1.2? Osteopenia Femoral Neck (Left)? 0.682?? -1.5? 0.7? Osteopenia Total Hip (Left)? 0.735?? -1.7? 0.2? Osteopenia Femoral Neck (Right)? 0.700?? -1.3? 0.8? Osteopenia Total Hip (Right)? 0.716?? -1.8? 0.1? Osteopenia Femoral Neck Mean? 0.691?? -1.4? 0.8? Osteopenia Total Hip Mean? 0.726?? -1.8? 0.1? Osteopenia World Health Organization criteria for BMD impression classify patients as: Normal (T-score at or above -1.0), Osteopenia (T-score between -1.0 and -2.5), or Osteoporosis (T-score at or below -2.5). 10-year Fracture Risk: FRAX not reported because: ? Treated for osteoporosis Clinical Information Provided by Patient: Is being treated for osteoporosis Has used the following medications: Fosamax (i.e. alendronate), Vitamin D Has the following medical conditions: Hysterectomy Patient maximum height was 64 Menopause Age: 40 No regular weight bearing exercise Drinks caffeinated beverages Onset of menses at age 11 Number of children 0 Impression: The patient has low bone mass, based on the Right Total Hip T-score. Discussion: It is important to ask patients whether they are taking their medications and to encourage continued and appropriate compliance with their osteoporosis therapies to reduce fracture risk. It is also important to review their risk factors and encourage appropriate calcium and vitamin D intakes, exercise, fall prevention and other lifestyle measures. Follow-Up: Consider a repeat BMD and Vertebral Fracture Assessment (VFA) exam in 2 years or sooner if medically necessary, to reassess this patient's status. Reported by: Dr. Yariel Benites on 11/11/2023 1:07:00 PM. NAIMA
--- NOTE | ~2023-11-11 | MM_ITS ---
EXAMINATION: MM screening vasiliy BI w yanet HISTORY: Screening TECHNIQUE: Craniocaudal and mediolateral oblique 3-D tomosynthesis images were obtained and synthetic 2-D images were generated. CAD analysis was submitted and interpreted. COMPARISON: 09/17/2021 BREAST PARENCHYMAL COMPOSITION: Dense: The breasts are heterogeneously dense, which may obscure small masses FINDINGS: There is no evidence of suspicious mass, calcification, or architectural distortion to sugg est malignancy in either breast. There has been no suspicious interval change. IMPRESSION: 1. No mammographic evidence of malignancy. 2. Recommend routine screening mammography in one year. BI-RADS Category 1: Negative Reviewed, dictated and finalized at location A.
== END 2023-11-11 12:13 | disposition home or self-care (01) ==
PROVIDERS: PCP Internal Medicine; Visit Provider Internal Medicine
DX: Z12.31 Encounter for screening mammogram for malignant neoplasm of breast (principal); Z78.0 Asymptomatic menopausal state; M85.89 Other specified disorders of bone density and structure, multiple sites
CPT/HCPCS: 77063; 77067; 77080

== ENCOUNTER 2024-04-26 07:18 | Outpatient (CLI) | payer MEDICARE, OTHER, SELFPAY ==
[2024-04-26 07:36] LABS: Basophils Absolute Auto 0.08 K/mm3 (0.00-0.10); Basophils Percent Auto 1.2 % (0.0-1.0); Eosinophils Absolute Auto 0.59 K/mm3 (0.02-0.50); Eosinophils Percent Auto 9.1 % (1.0-6.0); Hematocrit 44.1 % (35.0-42.0); Hemoglobin 15.1 g/dL (11.7-13.8); Immature Granulocyte Absolute 0.01 K/mm3 (0.00-0.00); Immature Granulocyte Percent A 0.2 % (0.0-0.0); Lymphocytes Absolute Auto 2.48 K/mm3 (1.10-4.50); Lymphocytes Percent Auto 38.1 % (18.0-42.0); Mean Corpuscular HGB Conc 34.2 g/dL (32-36); Mean Corpuscular Hemoglobin 32.2 pg (27.0-31.0); Mean Platelet Volume 9.8 fl (9.2-11.8); Monocytes Absolute Auto 0.55 K/mm3 (0.10-0.90); Monocytes Percent Auto 8.4 % (2.0-11.0); Platelet Count Result 254 K/mm3 (150-420); Red Blood Count 4.69 M/mm3 (4.20-5.40); Red Cell Distribution Width 12.3 % (11.6-14.4); White Blood Count 6.5 K/mm3 (4.8-10.8)
[2024-04-26 07:38] LABS: Add Urine Microscopic? YES; Appearance Urine Clear (Clear); Bilirubin Urine Negative (Negative); Blood Urine Negative (Negative); Color Urine Yellow (Yellow); Glucose Urine UA Negative (Negative); Ketones Urine Negative (Negative); Leukocyte Esterase Ur Trace (Negative); Nitrate Urine Negative (Negative); Protein Urine Negative (Negative); Specific Grav Ur 1.015 (1.010-1.020); Urobilinogen Urine 0.2 mg/dL (0.2-1.0)
[2024-04-26 07:46] LABS: RBC Urine 0-2 /hpf (0-2); Squamous Epithelial Cell Urine Few /hpf (Few); WBC Urine 0-3 /hpf (0-3)
[2024-04-26 07:47] LABS: Bacteria Urine Trace /hpf; Mucus Urine Few /lpf
[2024-04-26 08:25] LABS: Alanine Aminotransferase 42 U/L (14-59); Albumin Level 3.7 g/dL (3.4-5.0); Alkaline Phosphatase 53 U/L (46-116); Anion Gap 8 mmol/L (4-12); Aspartate Amino Transferase 28 U/L (15-37); Bilirubin,Total 0.6 mg/dL (0.00-1.00); Blood Urea Nitrogen 4 mg/dL (7-18); Calcium 8.9 mg/dL (8.5-10.1); Carbon Dioxide 30 mmol/L (21-32); Chloride 105 mmol/L (98-108); Cholesterol 251 mg/dL (0-200); Estimated Glomerular Filt Rate 60; Free T4 Free Thyroxine 1.04 ng/dL (0.76-1.46); Glucose 96 mg/dL (70-99); HDL Direct 83 mg/dL (40-60); LDL Cholesterol Calculated 156 mg/dL (<130); Osmolality Calculated 292 mOsm/kg (285-295); Potassium 3.8 mmol/L (3.5-5.1); Sodium 143 mmol/L (136-145); Thyroid Stimulating Hormone 1.54 uIU/mL (0.36-3.74); Total Protein 7.1 g/dL (6.4-8.2); Triglycerides 62 mg/dL (0-150)
[2024-04-28 06:44] LABS: Vitamin D 25 Hydroxy 75 ng/mL (30-100)
== END 2024-04-26 07:19 | disposition home or self-care (01) ==
LOC: CHSLAB 07:24
PROVIDERS: PCP Internal Medicine; Visit Provider Internal Medicine
DX: I49.3 Ventricular premature depolarization (principal); R31.21 Asymptomatic microscopic hematuria; I10 Essential (primary) hypertension; M81.0 Age-related osteoporosis without current pathological fracture; E53.8 Deficiency of other specified B group vitamins
CPT/HCPCS: 36415; 80053; 80061; 81001; 82306; 83735; 84439; 84443; 85025

== ENCOUNTER 2024-11-20 08:20 | Outpatient (CLI) | payer MEDICARE, OTHER, SELFPAY ==
[2024-11-20 08:45] LABS: Hematocrit 45.4 % (35.0-42.0); Hemoglobin 14.9 g/dL (11.7-13.8); Mean Corpuscular HGB Conc 32.8 g/dL (32-36); Mean Corpuscular Hemoglobin 31.2 pg (27.0-31.0); Mean Platelet Volume 10.3 fl (9.2-11.8); Platelet Count Result 262 K/mm3 (150-420); Red Blood Count 4.78 M/mm3 (4.20-5.40); Red Cell Distribution Width 12.4 % (11.6-14.4); White Blood Count 6.1 K/mm3 (4.8-10.8)
[2024-11-20 08:49] LABS: Appearance Urine Clear (Clear); Bilirubin Urine 1+ (Negative); Blood Urine Negative (Negative); Glucose Urine UA Negative (Negative); Ketones Urine Trace (Negative); Leukocyte Esterase Ur Negative (Negative); Nitrate Urine Negative (Negative); Protein Urine 1+ (Negative); pH Urine 6.5 (5.0-8.0)
[2024-11-20 08:55] LABS: Add Urine Microscopic? YES; Bacteria Urine Trace /hpf; Color Urine Dark Yellow (Yellow); Mucus Urine Moderate /lpf; RBC Urine 0-2 /hpf (0-2); Squamous Epithelial Cell Urine Few /hpf (Few); WBC Urine None seen /hpf (0-3)
[2024-11-20 09:39] LABS: Free T3 3.46 pg/mL (2.18-3.98)
[2024-11-20 09:52] LABS: Alanine Aminotransferase 42 U/L (14-59); Albumin Level 3.7 g/dL (3.4-5.0); Alkaline Phosphatase 48 U/L (46-116); Anion Gap 12 mmol/L (4-12); Aspartate Amino Transferase 35 U/L (15-37); Bilirubin,Total 0.6 mg/dL (0.00-1.00); Blood Urea Nitrogen 8 mg/dL (7-18); Calcium 8.8 mg/dL (8.5-10.1); Carbon Dioxide 29 mmol/L (21-32); Chloride 105 mmol/L (98-108); Cholesterol 247 mg/dL (0-200); Estimated Glomerular Filt Rate > 60; Free T4 Free Thyroxine 1.06 ng/dL (0.76-1.46); Glucose 91 mg/dL (70-99); HDL Direct 100 mg/dL (40-60); LDL Cholesterol Calculated 132 mg/dL (<130); Magnesium 2.1 mg/dL (1.8-2.4); Osmolality Calculated 300 mOsm/kg (285-295); Potassium 3.9 mmol/L (3.5-5.1); Sodium 146 mmol/L (136-145); Thyroid Stimulating Hormone 1.51 uIU/mL (0.36-3.74); Total Protein 7.2 g/dL (6.4-8.2); Triglycerides 75 mg/dL (0-150); Vitamin B12 819 pg/mL (193-986)
== END 2024-11-20 08:21 | disposition home or self-care (01) ==
LOC: CHSLAB 08:25
PROVIDERS: PCP Internal Medicine; Visit Provider Internal Medicine
DX: I10 Essential (primary) hypertension (principal); E78.2 Mixed hyperlipidemia; E53.8 Deficiency of other specified B group vitamins; M81.0 Age-related osteoporosis without current pathological fracture; I49.3 Ventricular premature depolarization
CPT/HCPCS: 36415; 80053; 80061; 81001; 82607; 83735; 84439; 84443; 84481; 85027

== ENCOUNTER 2024-12-04 08:17 | Outpatient (CLI) | payer MEDICARE, OTHER, SELFPAY ==
--- NOTE | ~2024-12-04 | MM_ITS ---
EXAMINATION: MM screening vasiliy BI w yanet HISTORY: Screening mammogram TECHNIQUE: Craniocaudal and mediolateral oblique 3-D tomosynthesis images were obtained and synthetic 2-D images were generated. CAD analysis was submitted and interpreted. COMPARISON: 11/11/2023, 09/17/2021, 09/04/2020 BREAST PARENCHYMAL COMPOSITION:Dense: The breasts are heterogeneously dense, which may obscure small masses. FINDINGS: No suspicious mass, calcification, or architectural distortion are identified in either elisabeth ast to suggest malignancy. There has been no suspicious interval change. IMPRESSION: No mammographic evidence of malignancy. Recommend routine screening mammography in one year. BI-RADS Category 1: Negative Reviewed, dictated and finalized at location .
== END 2024-12-04 08:18 | disposition home or self-care (01) ==
LOC: CHSIMG 08:20
PROVIDERS: PCP Internal Medicine; Visit Provider Internal Medicine
DX: Z12.31 Encounter for screening mammogram for malignant neoplasm of breast (principal)
CPT/HCPCS: 77063; 77067

== ENCOUNTER 2025-05-17 07:47 | Outpatient (CLI) | payer MEDICARE, SELFPAY ==
[2025-05-17 07:59] LABS: Hematocrit 47.9 % (35.0-42.0); Hemoglobin 16.0 g/dL (11.7-13.8); Mean Corpuscular HGB Conc 33.4 g/dL (32-36); Mean Corpuscular Hemoglobin 31.9 pg (27.0-31.0); Mean Corpuscular Volume 95.4 fL (78.0-102.0); Platelet Count Result 258 K/mm3 (150-420); Red Blood Count 5.02 M/mm3 (4.20-5.40); White Blood Count 7.5 K/mm3 (4.8-10.8)
[2025-05-17 08:00] LABS: Appearance Urine Clear (Clear); Glucose Urine UA Negative (Negative); Leukocyte Esterase Ur Trace (Negative); Nitrate Urine Negative (Negative); Specific Grav Ur 1.010 (1.010-1.020)
[2025-05-17 08:06] LABS: Add Urine Microscopic? YES
[2025-05-17 08:51] LABS: Alanine Aminotransferase 35 U/L (6-35); Albumin Level 4.5 g/dL (3.5-5.1); Alkaline Phosphatase 46 U/L (38-126); Anion Gap 8 mmol/L (4-12); Aspartate Amino Transferase 52 U/L (14-36); Bilirubin,Total 0.8 mg/dL (0.2-1.3); Blood Urea Nitrogen 7 mg/dL (7-17); Calcium 9.8 mg/dL (8.4-10.2); Carbon Dioxide 32 mmol/L (22-30); Chloride 103 mmol/L (98-107); Cholesterol 253 mg/dL (0-200); Creatine Kinase 55 U/L (30-135); Estimated Glomerular Filt Rate > 60; Glucose 92 mg/dL (65-110); HDL Direct 89 mg/dL; Osmolality Calculated 294 mOsm/kg (285-295); Potassium 4.3 mmol/L (3.4-5.0); Sodium 143 mmol/L (137-145); Total Protein 8.5 g/dL (6.3-8.2); Triglycerides 83 mg/dL (<150)
[2025-05-17 10:09] LABS: Vitamin B12 775.0 pg/mL (239-931)
== END 2025-05-17 07:48 | disposition home or self-care (01) ==
LOC: CHSLAB 07:49
PROVIDERS: PCP Internal Medicine; Visit Provider Internal Medicine
DX: I10 Essential (primary) hypertension (principal); E53.8 Deficiency of other specified B group vitamins; E78.2 Mixed hyperlipidemia; I49.3 Ventricular premature depolarization; M81.0 Age-related osteoporosis without current pathological fracture
CPT/HCPCS: 36415; 80053; 80061; 81001; 82306; 82550; 82607; 85027